=== PATIENT | male | born 1965 | race Caucasian/White ===

== ENCOUNTER 2021-07-10 15:18 | Outpatient (CLI) | payer OTHER, SELFPAY ==
[2021-07-16 14:25] LABS: Insulin Like Growth Factor 263 ng/mL (74-255)
== END 2021-07-10 23:59 | disposition home or self-care (01) ==
LOC: LAB 15:25
PROVIDERS: PCP Family Medicine; Visit Provider Internal Medicine Endocrinology, Diabetes & Metabolism
DX: E23.7 Disorder of pituitary gland, unspecified (principal)
CPT/HCPCS: 36415; 84305